=== PATIENT | male | born 1990 | race Caucasian/White ===

== ENCOUNTER → 2022-01-03 | Outpatient (REF) | payer BC ==
[2022-01-03 09:27] LABS: SEMEN APPEARANCE OPAQUE (OPAQUE); SEMEN VISCOSITY LIQUID (LIQUID); SEMEN VOLUME 3.7 ml (2.0-5.0)
[2022-01-03 09:33] LABS: WBC CONCENTRATION <=1 M/ml (<=1 M/ml)
== END ==
LOC: M LAB REF 09:04
PROVIDERS: ATTEND Preventive Medicine Undersea and Hyperbaric Medicine
DX: Z30.2 Encounter for sterilization (principal)